=== PATIENT | female | born 1955 | race Caucasian/White ===

== ENCOUNTER → 2019-12-14 09:50 | Outpatient (CLI) | payer MEDICARE, SELFPAY ==
--- NOTE | 2019-12-14 09:57 | XR_ITS ---
PROCEDURE: XR DEXA AXIAL SKELETON CLINICAL HISTORY: OSTEOPENIA COMPARISON: No exams were available for comparison FINDINGS: Right femoral neck density is 0.637 grams/centimeters squared with a T-score of -1 point consistent with osteopenia. Left femur density is 0.698 grams/centimeters sq with a T-score -2.0 consistent with osteopenia. L1-L4 density is 0.778 grams/centimeters sq consistent with a T-score of -2.4, osteopenia IMPRESSION: Osteopenia with moderate fracture risk. Treatment advised. Suggest follow-up exam in 2 years Dictated by: Tee Cordon MD 12/15/2019 12:39 Electronically signed by Tee Cordon MD in [place] 12/15/2019 12:39
== END ==
PROVIDERS: PCP Internal Medicine Adolescent Medicine; Visit Provider Internal Medicine Adolescent Medicine
DX: M85.89 Other specified disorders of bone density and structure, multiple sites (principal)
CPT/HCPCS: 77080